=== PATIENT | female | born 1940 | race Caucasian/White ===

== ENCOUNTER 2025-11-20 00:51 | Emergency (ER) | payer MEDICARE, SELFPAY ==
[2025-11-20 00:54] VITALS: BP 156/90
[2025-11-20 02:00] VITALS: BP 143/77
--- NOTE | 2025-11-20 02:33 | ED.GENMED ---
History of Present Illness
General
Chief Complaint: Urinary Symptoms
Source: patient
Exam Limitations: none
Time Seen by Provider: 11/20/25 02:32
Nursing documentation reviewed up to this point in time: agreed with
History of Present Illness
History of Present Illness:
85-year-old female with a past medical history of prior breast cancer on tamoxifen presents to the ER today with concerns of hematuria and bleeding. She reports that yesterday at around 10 AM, she had a cystoscopy with Dr. Jasper Paiz in
preparation for a uterine prolapse repair on 11/30/25. She reports that Dr. Paiz performed the cystoscopy and the bladder to prepare for surgery. She reports that they did not take a sample or biopsy and they just looked with a camera. They did
this using a catheter. She reports after procedure she went home with feeling well but then started develop some burning with urination. She was started on ciprofloxacin prophylactically by the urologist. She reports that she prior to bed around
10 AM. She started to notice a lot of bleeding and passage of clots in the urine. She reports that she went through 4 pads of blood. She reports that this seemed to slow down but there continues to be some blood tinged urine. She denies any
pelvic pain. She denies any abdominal pain. She denies any fevers or chills.
Review of Systems
Review of Systems
All Other Systems: ROS reviewed and negative except as documented in HPI and ROS
Phy Exam
Physical Exam
Physical Exam:
General: Patient is well appearing and in no acute distress; non-toxic
Skin: Warm and dry, no rashes or lesions
Head: Normocephalic, atraumatic
Eyes: Sclera non-icteric. EOMs intact.
Cardiac: Regular rate and rhythm, no murmurs
Peripheral Vascular: No lower extremity swelling or edema
Pulm: Normal respiratory effort, no wheezes, rales, rhonchi
Abdomen: No abdominal tenderness to palpation
Genitourinary: Uterine prolapse noted. No active bleeding from prolapse, small area of irritation near the cervix, no morgan bleeding from urethra
Neuro: CN II-XII intact, no focal neurologic deficits.
Psychiatric: Appropriate mood and affect.
Sepsis
Sepsis Screening
Sepsis Assessment: Sepsis Ruled Out
Sepsis Screen
Sepsis Screen: Sepsis Ruled Out
Date: 11/20/25
Time: 06:52
Course
Orders/Labs/Results
Orders:
Orders
11/20/25 02:52
Complete Blood Count/With Diff Urgent
Comprehensive Metabolic Panel Urgent
Urinalysis Reflex To Culture Urgent
Date Specimen was Collected: 11/20/25
Time Specimen was Collected: 02:49
Urine Microscopic Reflex Cult Urgent
Urine Culture Urgent
JEANNIE Source: U
Specimen Description:
Date Specimen was Collected: 11/20/25
Time Specimen was Collected: 02:49
11/20/25 05:30
CefTRIAXone [Rocephin] 2,000 mg IV NOW STA
11/20/25 05:37
Sterile Water [Sterile Water For Injection] 20 ml .ROUTE .[facility]
Abnormal Lab Results
11/20/25
02:52
WBC 12.6 H 10^3/uL
(4.8-10.8)
RBC 3.99 L 10^6/uL
(4.20-5.40)
Hct 36.9 L %
(37.0-47.0)
Absolute Neuts (auto) 10.7 H 10^3/uL
(1.4-6.5)
Neutrophils % 85.1 H %
(42.2-75.2)
Lymphocytes % 9.2 L %
(20.5-51.1)
BUN 32 H mg/dl
(7-17)
Glucose 120 H mg/dl
(70-99)
Ur Occult Blood Reflex 4+ A
(Negative)
Leukocyte Esterase Rfl 3+ A
(Negative)
Urine RBC >100 A /HPF
(0-2)
Urine WBC (Reflex) 80-90 A /HPF
(0-5)
Urine Bacteria (Reflex) Many A
(Negative)
Urine Albumin (Reflex) 4+ A
(Neg - Trace)
11/20/25 02:52
11/20/25 02:52
Vital Signs
Initial and Last Documented VS:
Initial Vital Signs
Temp Pulse Resp BP Pulse Ox
97.7 F 98 22 156/90 98
11/20/25 00:54 11/20/25 00:54 11/20/25 00:54 11/20/25 00:54 11/20/25 00:54
Last Documented Vital Signs
Temp Pulse Resp BP Pulse Ox
97.7 F 98 22 143/77 97
11/20/25 00:54 11/20/25 00:54 11/20/25 00:54 11/20/25 02:00 11/20/25 02:45
MDM/Problems Addressed
Differential Diagnosis Includes:
Bleeding from urologic trauma, hemorrhagic cystitis, bladder stone/polyp
MDM/Problems Addressed:
85-year-old female presents to the ER today with concerns of bleeding following her cystoscopy procedure. She reports that she noticed morgan bleeding on her underwear but also noticed blood with urinating. She reports that she also passed clots
when she was urinating. She reports that she subsequently used the bathroom in the ER and there is not any passage of clots but she noticed pink-tinged urine. Nursing reports that they noticed pink blood on the pad but no bright red blood during
entirety of her emergency department visit. She denies dizziness or lightheadedness. She feels well. She has not had any syncopal episodes. On my independent exam, I do not appreciate any morgan bleeding from the uterine prolapse, and no morgan
rectal bleeding. Urinalysis sent which shows white blood cells, bacteria, and leukocyte esterase.
Findings as above concerning for urinary tract infection. I called Dr. Paiz he said that there is no urologic surgical procedure done and that he simply looked with the scope. He does not expect her to have much bleeding with the procedure. He
suspects she may have hemorrhagic cystitis. He advised us to give her a one-time dose of Ancef in the ER however patient is allergic to amoxicillin so we will give dose of Rocephin instead. He also advised the patient finish course of
ciprofloxacin. He reports that he will follow-up with her as an outpatient and request that urine culture be sent. This was completed. Patient stable for discharge. Strict return cautions discussed
*Pulse Oximetry
SaO2: 98
Oxygen Mode of Delivery: Room air
Patient hypoxic: no
*Critical Care Note
Total Time (30-74mins, 75-104mins- exclusive of procedures): Not Applicable
ED Attending Note
-
Portions of this chart may have been created with voice recognition software.� Occasional wrong word or��sound alike� substitutions may have occurred due to the inherent limitations of voice recognition software.
Discharge Plan
Departure
Patient Disposition: Home (Routine Discharge)
Date of Disposition: 11/20/25
Time of Disposition: 05:35
Patient with high blood pressure during this ER visit?: Yes
Condition: Good
Discharge Problem:
Status post cystoscopy, Acute hemorrhagic cystitis
Instructions: Blood in the urine (hematuria) - ED (DC)
Referrals:
Tab Caldera DO [Family Provider, Family Practice]
Activity Restrictions/Additional Instructions:
Please follow-up with your primary care doctor as scheduled at 3 PM today for pre-op clearance.
Please continue the ciprofloxacin as prescribed by Dr. Paiz.

Please call Dr. Paiz's office tomorrow to schedule follow up appointment. Your urine was sent for culture.
PLEASE RETURN TO THE ER SHOULD YOU DEVELOP INTRACTABLE NAUSEA OR VOMITING, ABDOMINAL PAIN, PELVIC PAIN, CHEST PAIN, SHORTNESS OF BREATH, OR ANY OTHER SIGNS OR SYMPTOMS WORRISOME TO YOU.
Interventions
Interventions:
*General Assessment Last Done: 11/20/25 02:39
*Neglect/Abuse Screening Last Done: 11/20/25 00:54
*ED COVID-19 Vaccine History Last Done: 11/20/25 02:39
*ED Influenza Vaccine History Last Done: 11/20/25 02:39
[facility] Fall Risk Assessment Tool Last Done: 11/20/25 06:50
*Risk Screen - Suicide (C-SSRS) Last Done: 11/20/25 00:54
*Nursing Disposition Last Done: 11/20/25 06:50
ED-Female Genitourinary Assessment Last Done: 11/20/25 02:39
Discharge Date and Time
Discharge Date/Time: 11/20/25 06:51
Print Language: SALVADOREAN
--- NOTE | 2025-11-20 02:36 | EDRN ---
Patient's son out of room asking about when they would be seen, informed him it should be soon, son back in the room, call davison is in reach.
[2025-11-20 03:29] LABS: Hematocrit 36.9 % (37.0-47.0); Hemoglobin 12.2 g/dL (12.0-16.0); Mean Corp Hgb Conc. 33.1 g/dL (33.0-37.0); Mean Corpuscular Volume 92.5 fL (81.0-99.0); Nucleated Red Blood Cells % 0 %; Platelet Count 244 10^3/uL (130-400); Red Cell Dist. Width 13.4 % (11.5-14.5)
[2025-11-20 03:32] LABS: Urine Character Cloudy (Clear)
[2025-11-20 03:38] LABS: ALT (SGPT) 23 U/L (0-35); AST (SGOT) 25 U/L (14-36); Albumin 4.3 g/dl (3.5-5.0); Alkaline Phosphatase 106 U/L (38-126); Blood Urea Nitrogen 32 mg/dl (7-17); Calcium 9.5 mg/dl (8.4-10.2); Carbon Dioxide 22 mmol/L (22-30); Chloride 104 mmol/L (98-107); Glucose 120 mg/dl (70-99); Potassium 4.4 mmol/L (3.5-5.1); Sodium 135 mmol/L (135-145); Total Protein 7.0 g/dl (6.3-8.2); eGFR > 60.00
[2025-11-20] MEDS: ROCEPHIN 2000 MG IV (05:50)
[2025-11-20 06:14] LABS: Urine Red Blood Cell >100 /HPF (0-2); Urine White Cell 80-90 /HPF (0-5)
== END 2025-11-20 06:51 | disposition home or self-care (01) ==
LOC: EMR 00:51
PROVIDERS: Physician Assistant; EMERGENCY PHYSICIAN Emergency Medicine; FAMILY PHYSICIAN Student in an Organized Health Care Education/Training Program
DX: N30.01 Acute cystitis with hematuria (principal); N81.4 Uterovaginal prolapse, unspecified; Z98.890 Other specified postprocedural states; Z85.3 Personal history of malignant neoplasm of breast; Z79.899 Other long term (current) drug therapy; Z88.0 Allergy status to penicillin
CPT/HCPCS: 96374; 99284; 80053; 81003; 81015; 85025; 87086